=== PATIENT | male | born 1995 | race Caucasian/White ===

== ENCOUNTER → 2019-12-20 | Outpatient (CLI) | payer BC ==
--- NOTE | 2019-12-20 15:52 | RAD ---
KNEE RIGHT 3V History: Knee pain Comparison: None. Findings: 3 views of the right knee are submitted. No acute fracture or dislocation is identified. Joint spaces are maintained. Impression: 1. No acute osseous abnormality is identified. Electronically signed by: Juno Hernandez MD (12/20/2019 3:49 PM) [id number]
== END | disposition home or self-care (01) ==
LOC: RAD 12:21
PROVIDERS: ATTEND Physician Assistant
DX: M25.561 Pain in right knee (principal); X50.1XXA Overexertion from prolonged static or awkward postures, initial encounter; Y93.89 Activity, other specified; Y92.89 Other specified places as the place of occurrence of the external cause; Y99.8 Other external cause status
CPT/HCPCS: 73562